=== PATIENT | male | born 1985 | race Caucasian/White ===

== ENCOUNTER 2018-02-12 23:24 | Emergency (ER) | payer SELFPAY ==
[~2018-02-12 23:24] MED LIST: CEL100 PO; LEVO5PT PO
[2018-02-12 23:25] VITALS: BP 132/109
--- NOTE | 2018-02-12 23:29 | ER Report ---
History and Physical Time Seen By MD: 23:24 HPI/ROS CHIEF COMPLAINT: Long Term clearance HISTORY OF PRESENT ILLNESS: 32-year-old male brought in by police for fpc clearance. Patient denies any injuries. Patient denies past medical history. REVIEW OF SYSTEMS: Respiratory: No cough, no dyspnea. Cardiovascular: No chest pain, no palpitations. Gastrointestinal: No vomiting, no abdominal pain. Musculoskeletal: No back pain. Allergies: Coded Allergies: No Known Drug Allergies (Verified , 04/25/08) Home Meds Reported Medications Celecoxib (Celebrex) 100 Mg Cap, 100 MG PO BIDBS, 0 Refills 04/25/08 Levocetirizine Dihydrochloride (Xyzal) 5 Mg Tablet, 5 MG PO, 0 Refills 04/25/08 Reviewed Nurses Notes: Yes Old Medical Records Reviewed: Yes Constitutional Vital Sign - Last 24 Hours 02/12/18 23:25 Temp 98.0 Pulse 139 Resp 18 B/P (MAP) 132/109 Pulse Ox 93 O2 Delivery Room Air Physical Exam General Appearance: The patient is alert, has no immediate need for airway protection and no current signs of toxicity. Vital signs stable, patient is tachycardic. Afebrile, pulse ox normal HEENT: Pupils equal and round no injection. Oropharynx without dental trauma Respiratory: Chest is non tender, lungs are clear to auscultation. No chest wall tenderness Cardiac: regular rate and rhythm Gastrointestinal: Abdomen is soft and non tender, no masses, bowel sounds normal. Musculoskeletal: Neck: Neck is supple and non tender. Extremities have full range of motion and are non tender. Skin: No rashes or lesions. DIFFERENTIAL DIAGNOSIS: After history and physical exam differential diagnosis was considered for fpc clearance, polysubstance abuse, fpc clearance Medical Decision Making ED Course/Re-evaluation ED Course Patient was admitted to an examination room. H&P was done. The differential diagnosis was considered. On clinical examination. Patient has no injuries noted. Vital signs are stable. He voices no complaints. She is medically cleared for fpc admission. Decision to Disposition Date: Feb 12, 2018 Decision to Disposition Time: 23:28 Depart Departure Latest Vital Signs Vital Signs Date Time Temp Pulse Resp B/P (MAP) Pulse Ox O2 Delivery O2 Flow Rate FiO2 02/12/18 23:25 98.0 139 18 132/109 93 Room Air Impression: Primary Impression: Medical clearance for incarceration Additional Impression: Alcohol intoxication Condition: Improved Disposition: HOME OR SELF-CARE Patient Instructions: Alcohol Intoxication (ED) Additional Instructions: Medical cleared for fpc admission Problem Qualifiers Additional Impression: Alcohol intoxication Complication of substance-induced condition: uncomplicated Qualified Codes: F10.920 - Alcohol use, unspecified with intoxication, uncomplicated KEERTHI LEROY DO Feb 12, 2018 23:29
== END 2018-02-12 23:41 | disposition home or self-care (01) ==
LOC: ER 23:32
DX: F10.920 Alcohol use, unspecified with intoxication, uncomplicated (principal)
CPT/HCPCS: 99281

== ENCOUNTER 2018-02-18 14:02 | Emergency (ER) | payer SELFPAY ==
[2018-02-18 14:03] VITALS: BP 129/110
--- NOTE | 2018-02-18 14:13 | ER Report ---
History and Physical Time Seen By MD: 14:00 Hx. of Stated Complaint: [facility]ci Clearance HPI/ROS CHIEF COMPLAINT: [facility]ci clearance HISTORY OF PRESENT ILLNESS: 32-year-old male patient presents to emergency room with the [employer] needing clearance for long term. Patient has been drinking significant amounts of alcohol, [place] was [place] park. They were taking to long term for public intoxication. Patient states that he would like a liver screening, however he is unable to explain as to what the reasoning why he would like a liver screening. Patient denies having any pain, nausea, vomiting or diarrhea. Allergies: Coded Allergies: No Known Drug Allergies (Verified , 04/25/08) Home Meds Reported Medications Celecoxib (Celebrex) 100 Mg Cap, 100 MG PO BIDBS, 0 Refills 04/25/08 Levocetirizine Dihydrochloride (Xyzal) 5 Mg Tablet, 5 MG PO, 0 Refills 04/25/08 Past Medical/Surgical History Unable to obtain at this time due to alcohol intoxication. Unable To Obtain Past Medical: Unable to Obtain/Update Reviewed Nurses Notes: Yes Constitutional Vital Sign - Last 24 Hours 02/18/18 14:03 Temp 98.7 Pulse 118 Resp 16 B/P (MAP) 129/110 Pulse Ox 90 Physical Exam General appearance: Alert no distress. Respiratory: Chest is non tender, lungs are clear to auscultation. Cardiac: Regular rate and rhythm. Gastrointestinal: Bowel sounds are active 4, no acute tenderness, no organomegaly noted. DIFFERENTIAL DIAGNOSIS: After history and physical exam differential diagnosis was considered for long term clearance, alcohol intoxication. Medical Decision Making ED Course/Re-evaluation ED Course Patient wasn't admitted to examine, history and physical were obtained. Differential diagnoses were considered. On examination there is no acute findings, except the patient was obviously intoxicated with slurred speech and smelling of alcohol. Patient will be discharged to the intermediate center. He is to follow-up with the medical staff there with any concerns. Patient did mention that he would like a screening for his liver. However he was unable to give me a reason to do that. Therefore I will go ahead and defer that to the intermediate center. I discussed the patient who verbalized understanding and agreement with plan. Decision to Disposition Date: Feb 18, 2018 Decision to Disposition Time: 14:13 Depart Departure Latest Vital Signs Vital Signs Date Time Temp Pulse Resp B/P (MAP) Pulse Ox O2 Delivery O2 Flow Rate FiO2 02/18/18 14:03 98.7 118 16 129/110 90 Impression: Primary Impression: Medical clearance for incarceration Additional Impression: Alcohol intoxication Condition: Condition Unchanged Disposition: [facility] TO [facility]/CORRECTIONAL F Patient Instructions: Alcohol Intoxication (ED) Additional Instructions: Increase fluid intake. Get plenty of rest. Follow up with the medical staff at [facility]. Return to the ER if condition worsens. Avoid alcohol. Problem Qualifiers Additional Impression: Alcohol intoxication Complication of substance-induced condition: uncomplicated Qualified Codes: F10.920 - Alcohol use, unspecified with intoxication, uncomplicated [facility] Feb 18, 2018 14:13
== END 2018-02-18 14:21 ==
LOC: ER 14:17
DX: F10.920 Alcohol use, unspecified with intoxication, uncomplicated (principal)
CPT/HCPCS: 99281

== ENCOUNTER 2018-03-21 23:18 | Emergency (ER) | payer SELFPAY ==
[2018-03-21 23:19] VITALS: BP 138/91
--- NOTE | 2018-03-21 23:27 | ER Report ---
History and Physical Time Seen By MD: 23:21 Hx. of Stated Complaint: patient brought in by [employer] for fdc clearence, patient etoh intoxication. HPI/ROS CHIEF COMPLAINT: [facility]sp clearance HISTORY OF PRESENT ILLNESS: 32-year-old male presents ambulatory to the ER with police for fdc clearance. Patient was found in the park stumbling intoxicated. He was reportedly vomiting. She voices no complaints. He voices no significant medical history. REVIEW OF SYSTEMS: Respiratory: No cough, no dyspnea. Cardiovascular: No chest pain, no palpitations. Gastrointestinal: No vomiting, no abdominal pain. Musculoskeletal: No back pain. Allergies: Coded Allergies: No Known Drug Allergies (Verified , 04/25/08) Home Meds Discontinued Reported Medications Celecoxib (Celebrex) 100 Mg Cap, 100 MG PO BIDBS, 0 Refills 04/25/08 Levocetirizine Dihydrochloride (Xyzal) 5 Mg Tablet, 5 MG PO, 0 Refills 04/25/08 Unable To Obtain Past Medical: Unable to Obtain/Update Reviewed Nurses Notes: Yes Old Medical Records Reviewed: Yes Constitutional Vital Sign - Last 24 Hours 03/21/18 23:19 Temp 98.2 Pulse 89 Resp 16 B/P (MAP) 138/91 Pulse Ox 92 O2 Delivery Room Air Physical Exam General Appearance: The patient is alert, has no immediate need for airway protection and no current signs of toxicity. The patient of the head and neck reveals no tenderness or trauma HEENT: Pupils equal and round no injection. TMs normal, oropharynx without dental trauma, heavy odor of EtOH Respiratory: Chest is non tender, lungs are clear to auscultation. Cardiac: regular rate and rhythm Gastrointestinal: Abdomen is soft and non tender, no masses, bowel sounds normal. Musculoskeletal: Neck: Neck is supple and non tender. Extremities have full range of motion and are non tender. Skin: No rashes or lesions. DIFFERENTIAL DIAGNOSIS: After history and physical exam differential diagnosis was considered for fdc clearance, polysubstance abuse, alcohol intoxication Medical Decision Making ED Course/Re-evaluation ED Course Patient was admitted to an examination room. H&P was done. The dental diagnoses was considered. On clinical exam. There is no findings. Patient's here for fdc clearance. He appears grossly on-call intoxicated. His vital signs are stable. He is medically cleared for fdc admission. Decision to Disposition Date: Mar 21, 2018 Decision to Disposition Time: 23:25 Depart Departure Latest Vital Signs Vital Signs Date Time Temp Pulse Resp B/P (MAP) Pulse Ox O2 Delivery O2 Flow Rate FiO2 03/21/18 23:19 98.2 89 16 138/91 92 Room Air Impression: Primary Impression: Medical clearance for incarceration Additional Impression: Alcohol intoxication Condition: Improved Disposition: [facility] TO LONGTERM/CORRECTIONAL F New Scripts No Active Prescriptions or Reported Meds Patient Instructions: Alcohol Intoxication (ED) Additional Instructions: Medically cleared for fdc admission Problem Qualifiers Additional Impression: Alcohol intoxication Complication of substance-induced condition: uncomplicated Qualified Codes: F10.920 - Alcohol use, unspecified with intoxication, uncomplicated KEERTHI LEROY DO Mar 21, 2018 23:27
== END 2018-03-21 23:29 ==
LOC: ER 23:20
DX: F10.920 Alcohol use, unspecified with intoxication, uncomplicated (principal)
CPT/HCPCS: 99281

== ENCOUNTER → 2018-10-04 | Emergency (ER) | payer MEDICAID ==
[2018-10-04 15:01] VITALS: BP 123/85
--- NOTE | 2018-10-04 15:03 | ER Report ---
History and Physical Time Seen By MD: 15:03 HPI/ROS Police called after by-standers witnessed patient stumbling across the road appearing intoxicated. Patient admits to drinking all morning, and states he was just going to get some chewing tobacco. He has no complaints. No trauma. Remainder of the 14 system rev: Yes Allergies: Coded Allergies: No Known Drug Allergies (Verified , 04/25/08) Home Meds No Active Prescriptions or Reported Meds Reviewed Nurses Notes: Yes Old Medical Records Reviewed: Yes Hx Smoking: Yes Smoking Status: Current: Every Day Smoker Exposure to Second Hand Smoke?: Yes Hx Substance Use Disorder: Yes Hx Alcohol Use: Yes Constitutional Vital Sign - Last 24 Hours 10/04/18 15:01 Temp 97.9 Pulse 115 Resp 16 B/P (MAP) 123/85 Pulse Ox 92 O2 Delivery Room Air Physical Exam General Appearance: The patient is alert, has no immediate need for airway protection and no current signs of toxicity. Head: NCAT Eyes: Pupils equal and round no injection. Respiratory: Chest is non tender, lungs are clear to auscultation. Cardiac: regular rate and rhythm Extremities have full range of motion and are non tender. Neuro exam: clinically intoxicated, but able to ambulate without assistance. DIFFERENTIAL DIAGNOSIS: After history and physical exam differential diagnosis was considered for altered mental status including but not limited to hypoglycemia, infectious process, electrolyte abnormality, head injury and intoxicants. Medical Decision Making ED Course/Re-evaluation ED Course Clinically intoxicated, pt. has no complaints, able to ambulate without assistance, denies use of any other substances. Denies trauma. Normal PE other than being intoxicated. Cleared for long term in custody of police. Decision to Disposition Date: Oct 04, 2018 Decision to Disposition Time: 15:08 Depart Departure Latest Vital Signs Vital Signs Date Time Temp Pulse Resp B/P (MAP) Pulse Ox O2 Delivery O2 Flow Rate FiO2 10/04/18 15:01 97.9 115 16 123/85 92 Room Air Impression: Primary Impression: Medical clearance for incarceration Additional Impression: Alcohol intoxication Condition: Improved Disposition: [facility] TO DETENTION/CORRECTIONAL F New Scripts No Active Prescriptions or Reported Meds Patient Instructions: Alcohol Intoxication (DC) Problem Qualifiers Additional Impression: Alcohol intoxication Complication of substance-induced condition: uncomplicated Qualified Codes: F10.920 - Alcohol use, unspecified with intoxication, uncomplicated CAROLINE BRO MD Oct 04, 2018 15:03
== END ==
LOC: ER 15:20
DX: F10.920 Alcohol use, unspecified with intoxication, uncomplicated (principal)
CPT/HCPCS: 99281